=== PATIENT | male | born 2005 | race Caucasian/White ===

== ENCOUNTER 2025-02-10 16:43 | Emergency (ER) | payer OTHER, SELFPAY ==
[2025-02-10 17:09] VITALS: BP 145/84
[2025-02-10 17:30] LABS: Hematocrit 40.4 % (39.0-52.0); Hemoglobin 14.4 g/dL (13.0-18.0); Mean Corp Hgb Conc. 35.6 g/dL (33.0-37.0); Mean Corpuscular Volume 92.0 fL (80.0-94.0); Nucleated Red Blood Cells % 0 % (-); Platelet Count 221 10^3/uL (130-400); Red Cell Dist. Width 11.9 % (11.5-14.5)
[2025-02-10 17:46] LABS: COVID-19 Antigen Negative (Negative)
[2025-02-10 17:48] LABS: ALT (SGPT) 42 U/L (0-50); AST (SGOT) 28 U/L (17-59); Albumin 4.7 g/dl (3.5-5.0); Alkaline Phosphatase 69 U/L (38-126); Blood Urea Nitrogen 7 mg/dl (9-20); Calcium 9.5 mg/dl (8.4-10.2); Carbon Dioxide 30 mmol/L (22-30); Chloride 101 mmol/L (98-107); Glucose 92 mg/dl (70-99); Potassium 4.0 mmol/L (3.5-5.1); Sodium 137 mmol/L (135-145); Total Protein 7.3 g/dl (6.3-8.2); eGFR > 60.00
[2025-02-10 18:11] VITALS: BMI 21.0
[2025-02-10 18:16] VITALS: BP 122/79
[2025-02-10 19:21] VITALS: BP 125/76
--- NOTE | 2025-02-10 19:28 | ED.GENMED ---
History of Present Illness
General
Chief Complaint: Chest Pain
Source: patient
Exam Limitations: none
Time Seen by Provider: 02/10/25 18:56
Nursing documentation reviewed up to this point in time: agreed with
History of Present Illness
History of Present Illness:
The patient is a 19 year-old male who presents to the emergency department with his mother for evaluation of chest pain which started yesterday. Patient states he flew back from [place], [place] yesterday, and when he landed on the plane,
he noticed pain in his left lower chest. He states the pain is worse with deep inspiration. By this morning � patient states that pain had traveled and was located more diffusely across his chest. He also reports having a fever this morning at home.
Patient denies any radiation of pain into his back. He denies any productive cough. He denies any clear exertional component of pain or associated shortness of breath, lightheadedness. No lower extremity pain or swelling. No other URI symptoms.
Patient has no personal or family history of blood clots or clotting disorders.
Review of Systems
Review of Systems
Allergies reviewed?: Yes
All Other Systems: ROS reviewed and negative except as documented in HPI and ROS
Phy Exam
Physical Exam
Physical Exam:
Vitals: Mildly tachycardic on arrival. temp 100.1F
General: Patient is well appearing, no acute distress. Nontoxic appearing
Skin: Warm and dry, no rashes or lesions
Head: Normocephalic, atraumatic
Eyes: Sclera nonicteric.
Throat: Protecting airway
Neck: Normal ROM, no cervical spine tenderness, no meningismus
Cardiac: Regular rate and rhythm, no murmurs. No reproducible chest wall tenderness.
Pulm: Normal respiratory effort, no wheezes, rales, rhonchi heard on exam.
.
Abdomen: Abdomen soft and nontender
Extremities: No evidence of cyanosis or edema. 2+ palpable DP pulses bilaterally.
Neuro: AAOx3. Grossly intact
Psychiatric: Normal affect.
Scores
Heart Score for Chest Pain Patients
STEMI patient?: No
History: Slightly or Non-Suspicious
ECG: Normal
Age: </= 45 years
Risk Factors: No Risk Factors
Troponin: </= Normal Limit
Heart Score for Chest Pain Patients: 0
Heart Score Risk: 2.5% MACE over next 6 weeks
Course
Orders/Labs/Results
Orders:
Orders
02/10/25 16:45
EKG [Electrocardiogram (*1)] Urgent
Reason for Study: Chest Pain
EKG- Treatment ONCE
02/10/25 17:14
Chest [CR Chest - 2 Views ] Urgent
Comment:
Reason For Exam: cough
02/10/25 17:23
COVID-19 Antigen Urgent
Source: Nasal Swab
Complete Blood Count/With Diff Urgent
Comprehensive Metabolic Panel Urgent
INF RAPID [Influenza A+B Rapid Molecular] Urgent
MANSI Source: Nasal Swab
Specimen Description:
02/10/25 19:22
Acetaminophen [Tylenol] 650 mg PO NOW STA
02/10/25 19:32
D-Dimer Urgent
Troponin I Urgent
Abnormal Lab Results
02/10/25
17:23
RBC 4.39 L 10^6/uL
(4.70-6.10)
MCH 32.8 H pg
(27.0-31.0)
Lymphocytes % 16.4 L %
(20.5-51.1)
BUN 7 L mg/dl
(9-20)
02/10/25 17:23
02/10/25 17:23
Vital Signs
Initial and Last Documented VS:
Initial Vital Signs
Temp Pulse Resp BP Pulse Ox
99.5 F 90 20 145/84 100
02/10/25 17:09 02/10/25 17:09 02/10/25 17:09 02/10/25 17:09 02/10/25 17:09
Last Documented Vital Signs
Temp Pulse Resp BP Pulse Ox
99.5 F 95 18 109/68 97
02/10/25 17:09 02/10/25 21:00 02/10/25 21:00 02/10/25 21:00 02/10/25 20:45
MDM/Problems Addressed
Differential Diagnosis Includes:
Not limited to: viral syndrome, pleurisy, pneumonia, bronchitis, pericarditis, pulmonary emboism, pneumothorax, etc
MDM/Problems Addressed:
19-year-old male with pleuritic chest pain since yesterday as well as fever at home. No associated exertional component or shortness of breath. No lower extremity pain or swelling. Patient mildly tachycardic on arrival although he was found to be
borderline febrile to 100.1. Will give Tylenol and reassess heart rate. Otherwise he has stable vital signs. On exam � patient very well appearing, no appearant distress. Lungs clear bilaterally. No reproducible chest wall tenderness. No evidence of
DVT on exam.
Differential broad. Given associated fever � higher consideration for viral or infectious process. Symptoms not consistent with acute coronary syndrome. While patient was noted to have recent travel � plane ride was very short and only 1.5 hours do
not feel poses significant risk for pulmonary embolism � especially with no other risk factors. However � given patient tachycardia on arrival will screen with d-dimer. Will plan to check basic labs, cardiac enzymes, and obtain chest x-ray.
Update: labs are reviewed. No clinically significant abnormalities. No leukocytosis. Troponin undetectable. D-dimer negative. Chest x-ray without any evidence of focal infiltrate or pneumonia. His heart rate has normalized following Tylenol.
Work up in ED essentially negative. Very low suspicion for acute emergent process today. Symptoms possibly secondary to viral illness or pleurisy.
Feel stable for discharge home with supportive care, primary care follow up. Very strivt return precautions discussed. Case discussed with the attending physician.
Chronic conditions affecting care:
N/A
Acute Exacerbation and/or Progression of Chronic Illness:
N/A
*Radiology
Radiology exam reviewed: preliminary read by ED provider (CXR reviewed by me - no acute abnormalities)
*Pulse Oximetry
SaO2: 99
Oxygen Mode of Delivery: Room air
Patient hypoxic: no
*EKG
Interpreted by ED Provider?: Yes
EKG Intrepretation Date: 02/10/25
Interpretation: normal
Comparison EKG: no comparison EKG present
Heart Rate: 91
Rate: normal
Rhythm: sinus
[place]: normal axis
Interval: normal interval
Ischemia: no ischemia
*Recycling Technician Interpretation
Rate: tachycardiac
Interpretation: normal
Heart Rate: 103
Rhythm: sinus
*Critical Care Note
Total Time (30-74mins, 75-104mins- exclusive of procedures): Not Applicable
ED Attending Note
-
Portions of this chart may have been created with voice recognition software.� Occasional wrong word or��sound alike� substitutions may have occurred due to the inherent limitations of voice recognition software.
Discharge Plan
Departure
Patient Disposition: Home (Routine Discharge)
Date of Disposition: 02/10/25
Time of Disposition: 20:59
Patient with high blood pressure during this ER visit?: Yes
Condition: Good
Covid-19: Negative COVID-19
Discharge Problem:
Chest pain
Instructions: Pleuritic Chest Pain ED, BLOOD PRESSURE
Activity Restrictions/Additional Instructions:
RETURN TO THE EMERGENCY DEPARTMENT WITH ANY FEVER, CHILLS, WORSENING CHEST PAIN OR SHORTNESS OF BREATH/DIFFICULTY BREATHING, LIGHTHEADEDNESS/DIZZINESS, WORSENING CURRENT SYMPTOMS, OR ANY OTHER CONCERNS
- As discussed�your lab work and chest x-ray showed no acute abnormalities. Your symptoms may be due to a viral illness
- Is important to get plenty of rest and stay well-hydrated. Please take Motrin as needed for pain.
- Follow-up with primary care for further evaluation/management and to ensure that symptoms are improved
Monitor your symptoms closely and return to the emergency department with any acute worsening/new symptoms or any other concerns
Interventions
Interventions:
*Risk Screen - Suicide Last Done: 02/10/25 17:09
*General Assessment Last Done: 02/10/25 18:11
*Neglect/Abuse Screening Last Done: 02/10/25 17:09
*ED- Fall Risk Assessment Last Done: 02/10/25 18:11
*ED COVID-19 Vaccine History Last Done: 02/10/25 18:11
*Nursing Disposition Last Done: 02/10/25 21:09
ED- Cardiac Assessment Last Done: 02/10/25 18:11
Discharge Date and Time
Discharge Date/Time: 02/10/25 21:24
Print Language: [id number]
[2025-02-10] MEDS: TYLENOL 650 MG PO (19:29)
[2025-02-10 19:57] LABS: D-Dimer < 0.27 ug/mlFEU (0.00-0.50)
[2025-02-10 20:00] VITALS: BP 107/66
[2025-02-10 20:05] LABS: Troponin I < 0.012 ng/ml
[2025-02-10 21:00] VITALS: BP 109/68
== END 2025-02-10 21:24 | disposition home or self-care (01) ==
LOC: EMR 16:43
PROVIDERS: Emergency Medicine; Physician Assistant; EMERGENCY PHYSICIAN Emergency Medicine; FAMILY PHYSICIAN Family Medicine
DX: R07.9 Chest pain, unspecified (principal); Z11.52 Encounter for screening for COVID-19
CPT/HCPCS: 99285; 71046; 80053; 84484; 85025; 85379; 87502; 87811; 93005